=== PATIENT | male | born 1960 | race Caucasian/White ===

== ENCOUNTER → 2016-12-05 | Outpatient (CLI) | payer BC ==
[~2016-12-05] MED LIST: AXIRON30 MG/1.5 IM; CIPRO 500MG TA500 MG PO; COZAAR 50MG50 MG/TAB PO; DEPO-TESTOS200 MG/M1 IM; GLYCOPYRROLATE1 MG PO; KLONOPIN 1MG1 MG PO; LAMICTAL 100MG100 MG PO; NORCO 325 MG-51 TAB PO
== END ==
LOC: COL.RAD 09:28
DX: R10.11 Right upper quadrant pain (principal); N28.1 Cyst of kidney, acquired; N50.82 Scrotal pain

== ENCOUNTER → 2017-10-18 | Outpatient (CLI) | payer BC | LOC: BHSO 08:51 | DX: F41.1 Generalized anxiety disorder (principal) ==

== ENCOUNTER → 2018-01-24 | Outpatient (CLI) | payer BC | LOC: COL.RAD 14:28 | DX: M79.662 Pain in left lower leg (principal); R60.9 Edema, unspecified ==

== ENCOUNTER → 2018-06-05 | Outpatient (CLI) | payer OTHER | LOC: BHSO 09:18 | DX: F33.42 Major depressive disorder, recurrent, in full remission (principal) | CPT/HCPCS: G0463 ==

== ENCOUNTER → 2018-08-18 | Outpatient (CLI) | payer OTHER | LOC: BHSO 08:52 | DX: F33.42 Major depressive disorder, recurrent, in full remission (principal) | CPT/HCPCS: G0463 ==

== ENCOUNTER → 2019-02-23 | Outpatient (CLI) | payer OTHER | LOC: BHSO 09:15 | DX: F33.42 Major depressive disorder, recurrent, in full remission (principal) | CPT/HCPCS: G0463 ==

== ENCOUNTER → 2019-08-31 | Outpatient (CLI) | payer OTHER | LOC: BHSO 08:57 | DX: F33.42 Major depressive disorder, recurrent, in full remission (principal) | CPT/HCPCS: G0463 ==

== ENCOUNTER → 2020-06-13 | Outpatient (CLI) | payer OTHER | LOC: BHSO 08:37 | DX: F33.42 Major depressive disorder, recurrent, in full remission (principal) | CPT/HCPCS: G0463 ==